=== PATIENT | male | born 1970 | race Caucasian/White ===

== ENCOUNTER → 2016-07-14 | Outpatient (CLI) | payer OTHER | LOC: RAD 10:51 | DX: M25.511 Pain in right shoulder (principal) ==

== ENCOUNTER → 2016-11-22 | Outpatient (CLI) | payer OTHER | LOC: RAD 08:16 | DX: S46.811A Strain of other muscles, fascia and tendons at shoulder and upper arm level, right arm, initial encounter (principal); V29.9XXA Motorcycle rider (driver) (passenger) injured in unspecified traffic accident, initial encounter ==

== ENCOUNTER → 2017-05-21 | Outpatient (RCR) | payer OTHER | END | disposition home or self-care (01) | LOC: PT | DX: Z47.89 Encounter for other orthopedic aftercare (principal) ==

== ENCOUNTER 2017-08-16 16:00 | Outpatient (RCR) | payer OTHER | END 2017-08-21 | disposition home or self-care (01) | LOC: PT | DX: Z47.89 Encounter for other orthopedic aftercare (principal) ==

== ENCOUNTER 2017-09-10 16:00 | Outpatient (RCR) | payer OTHER | END 2017-09-10 16:30 | disposition home or self-care (01) | LOC: PT 16:00 | DX: Z47.89 Encounter for other orthopedic aftercare (principal) ==

== ENCOUNTER 2017-11-01 16:00 | Outpatient (RCR) | payer OTHER | END 2017-11-01 16:30 | disposition home or self-care (01) | LOC: PT 16:00 | DX: Z47.89 Encounter for other orthopedic aftercare (principal) ==

== ENCOUNTER → 2019-03-31 | Outpatient (CLI) | payer OTHER | LOC: RAD 08:21 | DX: M94.8X3 Other specified disorders of cartilage, forearm (principal) ==

== ENCOUNTER → 2024-03-03 | Day surgery (SDC) | payer BC ==
[~2024-03-03] MED LIST: Lidocaine PF 2% (20 MG/ML) 5 ML VIAL ONE
== END ==
LOC: MSO 02-25 08:23
DX: Z12.11 Encounter for screening for malignant neoplasm of colon (principal); D12.5 Benign neoplasm of sigmoid colon; F17.220 Nicotine dependence, chewing tobacco, uncomplicated
CPT/HCPCS: 00812; J2704; J7120